=== PATIENT | male | born 1960 | race Caucasian/White ===

== ENCOUNTER 2017-01-15 19:48 | Emergency (ER) | payer OTHER ==
[~2017-01-15] VITALS: Ht 177.8 cm; Wt 109.3 kg
[~2017-01-15 19:48] MED LIST: OXYC1TAB7 PO; PROM12.554 PR
[2017-01-15 19:51] VITALS: BP 162/83
[2017-01-15 20:36] LABS: PATH.CAST-FLAG NOT PRESENT; SPERM-FLAG NOT PRESENT; SRC-FLAG NOT PRESENT; XTAL-FLAG NOT PRESENT; YLC-FLAG NOT PRESENT
[2017-01-15 20:47] LABS: BLOOD UREA NITROGEN 19 mg/dL (7-18)
== END 2017-01-15 21:18 | disposition home or self-care (01) ==
LOC: ED 20:45
DX: N20.0 Calculus of kidney (principal); Z90.49 Acquired absence of other specified parts of digestive tract
CPT/HCPCS: 36415; 80048; 81001; 82040; 85025; 87086; 99284